=== PATIENT | female | born 1965 | race Caucasian/White ===

== ENCOUNTER 2018-06-18 10:52 | Emergency (ER) | payer MEDICAID ==
[~2018-06-18] VITALS: Ht 162.6 cm; Wt 86.2 kg
[2018-06-18 11:05] VITALS: BP 146/82
--- NOTE | 2018-06-18 11:59 | Emergency Room Report ---
History of Present Illness General Chief Complaint: Wound Recheck/Suture Removal Source: Patient Present Illness HPI 52-year-old female with recent excision of basal cell carcinoma presents with open wound on left upper chest, she had the biopsy done and sutures placed 2 days ago, then woke up this morning and the sutures it popped open. She did not bleed anywhere, and her quality control told her that it was not bleeding, so there was no need to close it again but she came here for a second opinion. Allergies: Uncoded Allergies: TAPE (Allergy, Unknown, 06/18/18) Patient History Past Medical History: see triage record Last Menstrual Period: menopause Reviewed Nursing Documentation: PMH: Agreed; PSxH: Agreed Nursing Documentation-PMH Past Medical History: No History, Except For Hx Cancer: Yes - Skin CA Review of Systems Constitutional: Denies: fever Eye: Denies: acuity changes Respiratory: Denies: cough, shortness of breath Cardiovascular: Denies: chest pain Gastrointestinal: Denies: nausea, vomiting Skin: Denies: rash Neurological: Denies: headache Physical Exam Vital Signs Date Time Temp Pulse Resp B/P (MAP) Pulse Ox O2 Delivery O2 Flow Rate FiO2 06/18/18 11:04 98.2 65 14 146/82 94 Room Air 98.2 General Appearance: well appearing, no apparent distress Head: normocephalic, atraumatic Eyes: bilateral eye fluoroscene uptake ENT: hearing grossly normal, normal voice Neck: full range of motion, supple Respiratory: no respiratory distress, speaking full sentences Musculoskeletal: no calf tenderness Neurologic: alert, normal gait Psychiatric: mood/affect normal Skin: no rash, wd healing/no infection noted - Left upper chest 1 cm diameter wound, no bleeding, no surrounding erythema, no discharge, other Lymphatic: normal inspection, no adenopathy Medical Decision Making Diagnostic Impression: Primary Impression: Encounter for post-traumatic wound check ER Course Will recommend topical Neosporin twice a day, clean bandage, follow-up with quality control Last Vital Signs Date Time Temp Pulse Resp B/P (MAP) Pulse Ox O2 Delivery O2 Flow Rate FiO2 06/18/18 11:05 98.2 65 14 146/82 94 Room Air 98.2 Disposition: HOME, SELF-CARE Condition: Stable Referrals: [facility],REFERR (PCP) LULY QUINTERO M.D Jun 18, 2018 11:59
[2018-06-18 12:04] VITALS: BP 133/75
== END 2018-06-18 12:05 | disposition home or self-care (01) ==
LOC: EMR 11:19
DX: Z48.01 Encounter for change or removal of surgical wound dressing (principal); Z85.828 Personal history of other malignant neoplasm of skin; Z78.0 Asymptomatic menopausal state
CPT/HCPCS: 99282